=== PATIENT | female | born 1950 | race Caucasian/White ===

== ENCOUNTER 2016-06-17 07:18 | Day surgery (SDC) | payer MEDICARE ==
[2016-06-12 12:07] VITALS: BMI 29.2
[~2016-06-17 07:18] MED LIST: LACTATED RINGERS 1,000 ML IV SCH
[2016-06-17 07:49] VITALS: TEMP 96.9
[2016-06-17] MEDS ORDERED: LIDOCAINE 1% 20 ML VIAL (10MG/ML) FOR IV START INTRADERMA ONE (07:55)
[2016-06-17] MEDS ORDERED: PROPOFOL 10 MG/ML 20 ML VIAL IV ONE (08:23)
--- NOTE | 2016-06-17 08:39 | P.PCN ---
Date of Procedure: 06/17/16 Procedure(s) Performed: BRIEF HISTORY: Patient is a 65-year-old pleasant white female scheduled for an elective colonoscopy as a part of History of Ulcerative Colitis Diagnosed in 2001. She Is in Clinical Remission. Presently Maintained on Oral Mesalamine. PROCEDURE PERFORMED: Colonoscopy with biopsy PREOPERATIVE DIAGNOSIS: Long-standing history of ulcerative colitis. IV sedation per Anesthesia. PROCEDURE: After informed consent was obtained, the patient, was brought into the endoscopy unit. IV sedation was administered by Anesthesia under continuous monitoring. Digital rectal examination was normal. Initially the Olympus CF- 160 flexible video colonoscope was then inserted in the rectum, gradually advanced into the cecum without any difficulty. Careful examination was performed as the scope was gradually being withdrawn. Ileocecal valve and the appendiceal orifice were visualized and appeared normal. Prep was excellent. Mucosa of the cecum, ascending colon, transverse colon, descending colon, sigmoid colon, had mild erythema throughout the entire colon but no evidence of erosions or ulcerations or spontaneous bleeding consistent with mild active colitis and multiple random biopsies were done at every 10 cm into well. The rectum appeared normal. Retroflexion was performed in the rectum and no lesions were seen. The patient tolerated the procedure well. IMPRESSION: Mild erythema throughout the entire colon consistent with mildly active ulcerative colitis. Status post random biopsies. No evidence of colorectal neoplasia. RECOMMENDATIONS: Findings of this examination were discussed with the patient as well as her family. She was advised to follow with the biopsy results. If the biopsy does not show any evidence of dysplasia she can have a repeat colonoscopy in 2 years.
[2016-06-17 09:08] VITALS: BP 139/73; PULSE 67; RESP 18
== END 2016-06-17 09:32 | disposition home or self-care (01) ==
LOC: ORWHC2ENDO 07:18
PROVIDERS: ATTEND Internal Medicine Gastroenterology
DX: K51.00 Ulcerative (chronic) pancolitis without complications (principal); I25.10 Atherosclerotic heart disease of native coronary artery without angina pectoris; I10 Essential (primary) hypertension; E78.5 Hyperlipidemia, unspecified; K21.9 Gastro-esophageal reflux disease without esophagitis; Z95.5 Presence of coronary angioplasty implant and graft; Z79.1 Long term (current) use of non-steroidal anti-inflammatories (NSAID); Z79.82 Long term (current) use of aspirin; Z79.899 Other long term (current) drug therapy; Z90.710 Acquired absence of both cervix and uterus
CPT/HCPCS: 88305; 45380; J2704

== ENCOUNTER 2017-12-02 08:52 | Day surgery (SDC) | payer MEDICARE ==
[2017-12-02 09:30] VITALS: BMI 29.6
[2017-12-02 09:39] VITALS: TEMP 97
[2017-12-02] MEDS ORDERED: LACTATED RINGERS 1,000 ML IV ONE (09:39)
[2017-12-02] MEDS ORDERED: LIDOCAINE 1% 20 ML VIAL (10MG/ML) FOR IV START INTRADERMA ONE (09:40)
[2017-12-02] MEDS ORDERED: LIDOCAINE 1% INJ 10MG/ML (20 ML MDV) ONE (10:53)
[2017-12-02] MEDS ORDERED: MIDAZOLAM 2 MG/2 ML VIAL ONE (10:53)
[2017-12-02] MEDS ORDERED: PROPOFOL 10 MG/ML 20 ML VIAL IV ONE (10:53)
--- NOTE | 2017-12-02 11:07 | P.PCN ---
Date of Procedure: 12/02/17 Procedure(s) Performed: BRIEF HISTORY: Patient is a 67-year-old, pleasant, female, scheduled for an upper endoscopy with possible dilation as a part of evaluation of intermittent dysphagia to solids for the last 3 months duration.. PROCEDURE PERFORMED: Esophagogastroduodenoscopy with biopsy and dilation PREOPERATIVE DIAGNOSIS: Dysphagia to solids of 3 months duration. IV sedation per anesthesia. PROCEDURE: After informed consent was obtained, the patient was brought into the endoscopy unit. IV sedation was administered by Anesthesia under continuous monitoring. Initially the Olympus GIF-140 video endoscope was inserted into the mouth. Esophagus intubated without any difficulty. It was gradually advanced into the stomach and duodenum and carefully examined. The bulb and the second part of the duodenum appeared normal. The scope at this time was withdrawn to the stomach, adequately insufflated with air, and upon careful examination, mucosa of the antrum mild gastritis and biopsies were done from this area. The body, cardia and the fundus appeared normal. The scope was then withdrawn into the esophagus. Small sliding Hiatal hernia noted. The GE junction was located at 39 cm from the incisors. There was distal esophageal Schatzki's ring identified and this was dilated using a T 15-18 mm TTS balloon as sequential fashion for 90 seconds. There were 2 superficial erosions in the distal esophagus consistent with LA grade B reflux esophagitis. Rest of the esophagus appeared normal and the patient tolerated the procedure well. IMPRESSION: 1. Distal esophageal Schatzki's ring status post balloon dilation 15-18 mm the balloon as described above. 2. LA grade B reflux esophagitis 3. Mild antral gastritis and a small hiatal hernia. RECOMMENDATIONS: The findings of this examination were discussed with the patient is a family. She will remain on a liquid liquid diet for lunch and soft diet for dinner. She was advised to follow with the biopsy results. She' ll continue with Zantac 150 milligrams twice daily.. She'll be seen in office in 3-4 weeks.
[2017-12-02] MEDS ORDERED: LACTATED RINGERS 1,000 ML IV SCH (11:18)
[2017-12-02 11:34] VITALS: BP 150/80; PULSE 78; RESP 18
== END 2017-12-02 12:05 | disposition home or self-care (01) ==
LOC: ORWHC2ENDO 08:52
PROVIDERS: ATTEND Internal Medicine Gastroenterology
DX: K22.2 Esophageal obstruction (principal); K44.9 Diaphragmatic hernia without obstruction or gangrene; K31.9 Disease of stomach and duodenum, unspecified; K21.0 Gastro-esophageal reflux disease with esophagitis; K22.10 Ulcer of esophagus without bleeding; I25.10 Atherosclerotic heart disease of native coronary artery without angina pectoris; I10 Essential (primary) hypertension; Z87.891 Personal history of nicotine dependence; Z95.5 Presence of coronary angioplasty implant and graft; Z79.82 Long term (current) use of aspirin; Z79.899 Other long term (current) drug therapy
CPT/HCPCS: 88305; 43239; 43249; J2250; J2001; J2704; C1726

== ENCOUNTER 2018-06-15 09:51 | Day surgery (SDC) | payer MEDICARE ==
[2018-06-13 09:55] VITALS: BMI 28.8
[~2018-06-15 09:51] MED LIST changes: +LIDOCAINE 1% 20 ML VIAL (10MG/ML) FOR IV START INTRADERMA PRN; +ONDANSETRON 4 MG/2 ML VIAL IVP ONE; +TETRACAINE 0.5% OPHTH (PF) DROPS 4 ML BTL OP ONE
[2018-06-15] MEDS: PHENYLEPHRINE 2.5% OPHTH DRP 2ML OP NR ×3 (10:26→10:42)
[2018-06-15] MEDS: CYCLOPENTOLATE 1% OPHTH SOLN 2 ML BTL OP ONE ×3 (10:30→10:46)
[2018-06-15 10:36] VITALS: TEMP 97.7
[2018-06-15] MEDS ORDERED: MIDAZOLAM 2 MG/2 ML VIAL ONE (11:12)
[2018-06-15] MEDS ORDERED: fentaNYL (PF) 50 MCG/ML 2 ML AMP ONE (11:12)
[2018-06-15] MEDS ORDERED: HYALURONATE SODIUM INTRAOCULAR 1 EACH SYRINGE (12MG/ML) INTRAOCULA ONE ×2 (11:20→11:28)
[2018-06-15] MEDS ORDERED: BALANCED SALT IRRIG SOLN COMB2 15 ML IRRIG.SOLN IRRIGATION ONE ×2 (11:21→11:28)
[2018-06-15] MEDS ORDERED: LIDOCAINE 1% (PF) 10MG/ML VIAL MISCELLANE ONE ×2 (11:21→11:28)
[2018-06-15] MEDS: TIMOLOL 0.5% OPHTH DROPS 5 ML BTL OP ONE ×2 (11:21→11:28)
[2018-06-15] MEDS ORDERED: ATROPINE OPHTH SOLN 1% 5ML BTL LEFT EYE ONE ×2 (11:22→11:28)
[2018-06-15] MEDS: MOXIFLOXACIN HCL 0.5% DROPS 3 ML BTL OP ONE ×2 (11:22→11:28)
[2018-06-15] MEDS ORDERED: EPINEPHrine (PF) 0.3 ML in BALANCED SALT IRRIG SOLN COMB2 500 ML IRRIGATION ONE ×4 (11:23)
--- NOTE | 2018-06-15 11:59 | P.OP ---
Date of Procedure: 06/15/18 Preoperative Diagnosis: NS & CS Postoperative Diagnosis: same Procedure(s) Performed: PIOL, OS Implants: AO1UV 24.50 Anesthesia: MAC Surgeon: Layo Ashby Estimated Blood Loss (ml): 0 Pathology: none sent Condition: stable Disposition: same day Indications for Procedure: blurry vision Operative Findings: No complications
[2018-06-15 12:22] VITALS: BP 175/82; PULSE 71; RESP 16
--- NOTE | 2018-06-16 09:26 | OP ---
OPERATIVE REPORT DATE OF SURGERY: June 15, 2018. PROCEDURE PERFORMED: Phacoemulsification of cataract and intraocular lens implant of the left eye. PREOPERATIVE DIAGNOSIS:: Nuclear sclerosis and cortical sclerosis. POSTOPERATIVE DIAGNOSIS:: Nuclear sclerosis and cortical sclerosis. OPERATION:: Phacoemulsification of cataract and Crystalens implant of the left eye. NARRATIVE:: After obtaining the appropriate consent, the patient was brought to the operating room. There the patient was placed under cardiac monitoring, prepped and draped in the usual sterile manner. The patient was approached from the left temporal side. The 5.5 mm Kirti ring inked in gentian clifton was placed centrally on the cornea. At the 11 o'clock position, a 1.1 mm keratome was used to create a paracentesis port. Through this opening, 1% Xylocaine MPF 50/50 mix with balanced salt solution was injected into the anterior chamber. This was followed by stabilization of the anterior chamber with Amvisc viscoelastic. At the 9 o'clock position, a 2.75 mm sonia keratome was used to create a self-scaling corneal flap incision in a Langerman fashion. Through this opening, a cystotome was introduced to begin a continuous tear capsulorrhexis which was completed using the Utrata forceps. Care was taken to ensure that the capsulorrhexis was at least the size of the bryn on the anterior cornea. Hydrodissection and hydrodelineation of the lens was accomplished with balanced salt solution. Phacoemulsification of the lens utilizing phaco chop was accomplished in 10.41 seconds at 10% power. Addition Xylocaine MPF was instilled into the anterior chamber. This was followed by removal of the remaining cortex under irrigation and aspiration along with careful polishing of the posterior capsule in a capsule vacuum mode. Additional Amvisc viscoelastic was then used to stabilize the capsular bag, and the Bausch and Lomb Crystalens Model AO1UV 24.5 diopter intraocular lens was injected into the capsular bag without difficult. The lens was rotated 270 degrees so that the haptics resided at the 6 and 12 o'clock positions, and all remaining viscoelastic was then removed from within the capsular bag and around the anterior chamber. The eye was brought to normal intraocular pressure through the paracentesis port along with slight hydration of the incision sites. Watertight integrity was confirmed using a fluorescein strip. The patient then received 2 drops of 0.5% timolol followed by 2 drops of Vigamox and 2 drops of 1% atropine. The patient was then lightly patched and shielded in the usual manner. There was no complications from the procedure. The patient tolerated the procedure well and was returned to outpatient recovery in good condition. SAROJ / LUIS: [id number] / MTDD
== END 2018-06-15 12:43 | disposition home or self-care (01) ==
LOC: OR 09:51
PROVIDERS: ATTEND Ophthalmology
DX: H25.812 Combined forms of age-related cataract, left eye (principal); I10 Essential (primary) hypertension; K21.9 Gastro-esophageal reflux disease without esophagitis; F40.240 Claustrophobia; H52.03 Hypermetropia, bilateral; E78.5 Hyperlipidemia, unspecified; H52.223 Regular astigmatism, bilateral; H52.4 Presbyopia; H00.026 Hordeolum internum left eye, unspecified eyelid; H00.023 Hordeolum internum right eye, unspecified eyelid; Z95.5 Presence of coronary angioplasty implant and graft; Z79.899 Other long term (current) drug therapy; Z87.891 Personal history of nicotine dependence; Z79.82 Long term (current) use of aspirin
CPT/HCPCS: 66984; V2632; V2788; J2250; J2405; J0171; J3010; J2001

== ENCOUNTER 2018-07-20 10:36 | Day surgery (SDC) | payer MEDICARE ==
[2018-07-14 16:11] VITALS: BMI 28.9
[~2018-07-20 10:36] MED LIST changes: +MOXIFLOXACIN HCL 0.5% DROPS 3 ML BTL OP ONE; -ONDANSETRON 4 MG/2 ML VIAL IVP ONE; +TIMOLOL 0.5% OPHTH DROPS 5 ML BTL OP ONE
[2018-07-20 11:26] VITALS: RESP 16; TEMP 98.2
[2018-07-20] MEDS: PHENYLEPHRINE 2.5% OPHTH DRP 2ML OP NR ×3 (11:35→11:47)
[2018-07-20] MEDS: CYCLOPENTOLATE 1% OPHTH SOLN 2 ML BTL OP ONE ×3 (11:38→11:50)
[2018-07-20] MEDS ORDERED: MIDAZOLAM 2 MG/2 ML VIAL ONE (12:44)
[2018-07-20] MEDS ORDERED: HYDROCORTISONE SUCCINATE 100 MG/2 ML VIAL ONE (12:44)
[2018-07-20] MEDS ORDERED: fentaNYL (PF) 50 MCG/ML 2 ML AMP ONE (12:44)
[2018-07-20] MEDS ORDERED: EPINEPHrine (PF) 0.3 ML in BALANCED SALT IRRIG SOLN COMB2 500 ML IRRIGATION ONE (12:46)
[2018-07-20] MEDS ORDERED: HYALURONATE SODIUM INTRAOCULAR 1 EACH SYRINGE (12MG/ML) INTRAOCULA ONE (12:47)
[2018-07-20] MEDS ORDERED: BALANCED SALT IRRIG SOLN COMB2 15 ML IRRIG.SOLN INTRAOCULA ONE (12:48)
[2018-07-20] MEDS ORDERED: LIDOCAINE 1% (PF) 10MG/ML VIAL SQ ONE (12:48)
[2018-07-20] MEDS ORDERED: TRYPAN BLUE 0.06% SYRINGE 0.5 ML SYRINGE INTRAOCULA ONE (12:49)
[2018-07-20] MEDS ORDERED: ATROPINE OPHTH SOLN 1% 5ML BTL RIGHT EYE ONE (13:03)
[2018-07-20] MEDS ORDERED: FLUORESCEIN STRIPS 1 MG STRIP RIGHT EYE ONE (13:48)
--- NOTE | 2018-07-20 13:58 | P.OP ---
Date of Procedure: 07/20/18 Preoperative Diagnosis: NS Postoperative Diagnosis: same Procedure(s) Performed: PIOL, OD Implants: [id number] 22.50 Anesthesia: MAC Surgeon: Layo Ashby Pathology: none sent Condition: stable Disposition: same day Indications for Procedure: blurry vision Operative Findings: pc tear, Miochol and secondary implant chosen. sutured 9 o/c wound. no vitreous at end of case, 100 mg solucortef IVP administered
[2018-07-20 14:40] VITALS: BP 140/65; PULSE 82
--- NOTE | 2018-07-21 06:30 | OP ---
OPERATIVE REPORT DATE OF SURGERY: July 20, 2018 PROCEDURES: Phacoemulsification of cataract and intraocular lens implant of the right eye. PREOPERATIVE DIAGNOSIS: Nuclear sclerosis and regular astigmatism. POSTOPERATIVE DIAGNOSIS: Nuclear sclerosis and regular astigmatism. SURGEON: Dr. Layo Ashby. ANESTHESIA: Topical. ESTIMATED BLOOD LOSS: None. SPECIMEN TAKEN: None. NARRATIVE: After obtaining the appropriate consent, the patient was brought to the operating room. There she was asked to sit upright and the axes 0 and 180 degrees were identified and marked with a gentian clifton marker on the patient's corneal limbus. She was then placed in the proper supine position under cardiac monitoring, then prepped and draped in the usual sterile manner. Using previously acquired corneal topography information, the axis of 74 degrees was identified and marked using the Rojas corneal axis marker. Once this was accomplished, a 5.5 mm Kirti ring was used to bryn the center of the patient's visual axis. At the 11 o'clock position an MVR blade was used to create a paracentesis port. Through this opening 1% Xylocaine MPF was instilled into the anterior chamber. This was followed by stabilization of the anterior chamber with Amvisc. At the 9 o'clock position, a 2.75 mm sonia keratome was used to create a self- sealing corneal flap incision in a Langerman's fashion. Through this opening, a cystotome was introduced to begin a continuous tear capsulorrhexis which was completed using the Utrata forceps. Hydrodissection and hydrodelineation of the lens was accomplished with balanced salt solution. Phacoemulsification of the lens was accomplished without difficulty. However, none of the values were recorded, so I have no amount of energy or time or fluids used in this patient's eye. Once the nucleus of lens was removed, additional Xylocaine MPF was instilled into the anterior chamber. This was followed by removal of the remaining cortex under irrigation and aspiration along with careful polishing of the posterior capsule in capsule vacuum mode. Because the planned lens to implant is a crystal lens using Eaton and Chacho corneal capsule polishers were used under viscoelastic to clean the entire anterior capsular leaflet as well as the equator as best possible. It was noted that during the final cleaning stage at the 9 o'clock position a rent began to form. It did not initially appear that there was any vitreous presenting and the area was tamponaded as quickly as possible with Amvisc. A little closer inspection did reveal some vitreous at the wound and using an irrigating cannula, the vitreous was swept back into the anterior chamber with minimal difficulty. There was a small amount noted that remained at the wound. This was cleaned up using Weck-Salena vitrectomy and Vannas scissors. Once this was accomplished and all vitreous was removed from the wound, additional viscoelastic was used to tamponade the opening through the posterior capsule. The back up lens chosen was a Bausch and Lomb LI61AO 22.5 diopter, which was inserted into the anterior chamber. The lens was noted to have been delivered in an inverted fashion. Fortunately, since the trailing haptic was left outside of the eye, easy manipulation without touching cornea or grabbing additional vitreous was accomplished without much difficulty and the lens was oriented in the proper anterior-posterior orientation. The lead haptic was placed within the ciliary sulcus without difficulty and using a Brandt forceps, the trailing haptic was placed into the ciliary sulcus as well. Though no vitreous was appreciated in or around the lens, Miochol was used to bring about pupillary miosis and ensure stability of the implant in its proper position. Careful irrigation and aspiration of the anterior chamber under low suction was performed to remove the viscoelastic from the anterior chamber. Once again, the temporal incision was confirmed to be without any vitreous and a 10-0 nylon suture was used to secure the temporal incision. The eye was brought to normal intraocular pressure through the paracentesis port. Fluorescein was used to confirm watertight integrity as well as the appearance of any stray vitreous from either the paracentesis or the temporal incision. As none was seen, moxifloxacin was placed on the patient's cornea as well as 2 drops of 0.5% timolol. The eye was then patched and shielded in the usual manner. Additionally, anesthesia was asked to administer 100 mg of Solu- Cortef IV push at the close of the case. There were no additional difficulties encountered during the procedure. She otherwise tolerated the procedure well and was returned to outpatient recovery in good condition. MIGUELL / CONSUELON: [id number] /
== END 2018-07-20 14:43 | disposition home or self-care (01) ==
LOC: OR 10:36
PROVIDERS: ATTEND Ophthalmology
DX: H25.11 Age-related nuclear cataract, right eye (principal); H52.223 Regular astigmatism, bilateral; H52.03 Hypermetropia, bilateral; H52.4 Presbyopia; H00.026 Hordeolum internum left eye, unspecified eyelid; H00.023 Hordeolum internum right eye, unspecified eyelid; Z96.1 Presence of intraocular lens; E78.5 Hyperlipidemia, unspecified; K21.9 Gastro-esophageal reflux disease without esophagitis; K51.90 Ulcerative colitis, unspecified, without complications; I25.119 Atherosclerotic heart disease of native coronary artery with unspecified angina pectoris; I11.9 Hypertensive heart disease without heart failure; Z87.891 Personal history of nicotine dependence; Z95.5 Presence of coronary angioplasty implant and graft; Z79.82 Long term (current) use of aspirin; Z79.899 Other long term (current) drug therapy
CPT/HCPCS: 66984; V2632; V2788; J2250; J1720; J0171; J3010; J2001

== ENCOUNTER → 2018-08-19 | Day surgery (SDC) | payer MEDICARE ==
[2018-08-17 17:07] VITALS: BMI 29.9
[~2018-08-19] MED LIST changes: +LACTATED RINGERS 1,000 ML IV ONE; +LIDOCAINE 1% 20 ML VIAL (10MG/ML) FOR IV START INTRADERMA ONE; -LIDOCAINE 1% 20 ML VIAL (10MG/ML) FOR IV START INTRADERMA PRN; -MOXIFLOXACIN HCL 0.5% DROPS 3 ML BTL OP ONE; +PROPOFOL 10 MG/ML 20 ML VIAL IV ONE; -TETRACAINE 0.5% OPHTH (PF) DROPS 4 ML BTL OP ONE; -TIMOLOL 0.5% OPHTH DROPS 5 ML BTL OP ONE
[2018-08-19 08:31] VITALS: TEMP 97.2
--- NOTE | 2018-08-19 09:38 | P.PCN ---
Date of Procedure: 08/19/18 Procedure(s) Performed: BRIEF HISTORY: Patient is a 59-year-old pleasant white female, scheduled for an elective colonoscopy as a part of surveillance of long-standing history of ulcerative colitis diagnosed in 2001. She remains in clinical remission. PROCEDURE PERFORMED: Colonoscopy with random biopsies. PREOPERATIVE DIAGNOSIS: Long-standing history of ulcerative colitis diagnosed in 2001. IV sedation per Anesthesia. PROCEDURE: After informed consent was obtained, the patient, was brought into the endoscopy unit. IV sedation was administered by Anesthesia under continuous monitoring. Digital rectal examination was normal. Initially the Olympus CF-160 flexible video colonoscope was then inserted in the rectum, gradually advanced into the cecum without any difficulty. Careful examination was performed as the scope was gradually being withdrawn. Ileocecal valve and the appendiceal orifice were visualized and appeared normal. Prep was excellent. Mucosa of the cecum, ascending colon, transverse colon, descending colon, sigmoid colon, and rectum appeared normal. There was some patchy areas of erythema noted in the transverse and descending colon and multiple biopsies were done at every 10 cm intervals from rectum to cecum. Retroflexion was performed in the rectum and no lesions were seen. The patient tolerated the procedure well. IMPRESSION: Mild patchy areas of erythema noted in the transverse colon and descending colon consistent with mild active colitis. Rest of the colon appeared normal No evidence of colorectal neoplasia RECOMMENDATIONS: Findings of this examination were discussed with the patient as well as a family. She was advised to follow with the biopsy results. She will continue with oral mesalamine and she will have a repeat colonoscopy in 2 years from now..
[2018-08-19 09:41] VITALS: RESP 17
[2018-08-19 09:50] VITALS: BP 136/81; PULSE 68
== END | disposition home or self-care (01) ==
LOC: ORWHC2ENDO 08:13
PROVIDERS: ATTEND Internal Medicine Gastroenterology
DX: Z12.11 Encounter for screening for malignant neoplasm of colon (principal); K51.90 Ulcerative colitis, unspecified, without complications; K62.89 Other specified diseases of anus and rectum; K21.9 Gastro-esophageal reflux disease without esophagitis; I10 Essential (primary) hypertension; E78.5 Hyperlipidemia, unspecified; I25.10 Atherosclerotic heart disease of native coronary artery without angina pectoris; Z95.5 Presence of coronary angioplasty implant and graft; Z79.82 Long term (current) use of aspirin; Z79.899 Other long term (current) drug therapy
CPT/HCPCS: 88305; 45380; J2704; 45378

== ENCOUNTER → 2019-08-10 | Outpatient (CLI) | payer BC, MEDICARE ==
--- NOTE | 2019-08-10 14:56 | ECHOS ---
STRESS ECHOCARDIOGRAM LUMASON: INDICATIONS: Chest pain. MEDICATIONS: Metaprolol, Atorvastatin, baby aspirin, Balsalazide, omeprazole, hydrochlorathiazide, multivitamin. BASELINE HEART RATE: 93 BASELINE BLOOD PRESSURE: 169/95 MAXIMUM HEART RATE: 140 MAXIMUM BLOOD PRESSURE: 183/77 85% MPHR: 128 100% MPHR: 151 METS: 7.9 MAXIMUM STAGE REACHED: 2 TOTAL EXERCISE TIME: 6:38 INDICATION: Chest pain. Baseline EKG shows sinus rhythm with poor R-wave progression. Patient exercised on Humberto protocol for a total of 6.5 minutes achieving 8 METS. 99% of predicted maximal heart rate without chest pain or diagnostic ST-segment depression. Baseline echo shows normal left ventricular size and systolic function with an ejection fraction of 55%. The basal inferior wall appears hypokinetic at rest suggestive of prior myocardial infarction. Postexercise, there is normal hyperdynamic response of anterior wall, lateral wall, septum, and mid to distal inferior wall. Basal inferior wall remains unchanged. CONCLUSION: 1. Above-average exercise tolerance. 2. Negative stress test by EKG criteria. 3. Abnormal stress echo showing evidence of small prior basal inferior wall myocardial infarction without any evidence of ischemia. MMODL / IJN: [id number] /
== END | disposition home or self-care (01) ==
LOC: RADNMMAIN 08:51
PROVIDERS: ATTEND Family Medicine
DX: I21.A9 Other myocardial infarction type (principal)
CPT/HCPCS: 93351

== ENCOUNTER 2021-04-16 10:25 | Day surgery (SDC) | payer MEDICARE ==
[2021-04-14 12:10] VITALS: BMI 28.8
[~2021-04-16 10:25] MED LIST changes: -LACTATED RINGERS 1,000 ML IV ONE; +LIDOCAINE 1% (10MG/ML) FOR IV START INTRADERMA PRN; -LIDOCAINE 1% 20 ML VIAL (10MG/ML) FOR IV START INTRADERMA ONE; -PROPOFOL 10 MG/ML 20 ML VIAL IV ONE
[2021-04-16 10:49] VITALS: TEMP 96.5
[2021-04-16] MEDS ORDERED: LACTATED RINGERS 1,000 ML IV ONE (11:01)
[2021-04-16] MEDS ORDERED: PROPOFOL 10 MG/ML 20 ML VIAL IV ONE (11:08)
[2021-04-16] MEDS ORDERED: fentaNYL (PF) 50 MCG/ML 2 ML AMP ONE (11:08)
[2021-04-16] MEDS ORDERED: MIDAZOLAM 2 MG/2 ML VIAL ONE (11:08)
--- NOTE | 2021-04-16 11:30 | P.PCN ---
Date of Procedure: 04/16/21 Procedure(s) Performed: BRIEF HISTORY: Patient is a 70-year-old pleasant female scheduled for an elective colonoscopy as a part of a history of ulcerative colitis diagnosed in 2001. She continues remains in clinical remission. Last colonoscopy was 3 years ago. PROCEDURE PERFORMED: Colonoscopy with random biopsies.. PREOPERATIVE DIAGNOSIS: Long-standing history of ulcerative colitis. IV sedation per Anesthesia. PROCEDURE: After informed consent was obtained, the patient, was brought into the endoscopy unit. IV sedation was administered by Anesthesia under continuous monitoring. Digital rectal examination was normal. Initially the Olympus CF-160 flexible video colonoscope was then inserted in the rectum, gradually advanced into the cecum without any difficulty. Careful examination was performed as the scope was gradually being withdrawn. Ileocecal valve and the appendiceal orifice were visualized and appeared normal. Prep was excellent. Mucosa of the cecum, ascending colon, transverse colon, descending colon, sigmoid colon, and rectum appeared normal. Retroflexion was performed in the rectum and no lesions were seen. Biopsies were done from the cecum to rectum at every 10 cm intervals to rule out dysplasia The patient tolerated the procedure well. IMPRESSION: Normal-appearing colon from rectum to cecum with no evidence of colitis or colorectal neoplasia. . RECOMMENDATIONS: Findings of this examination were discussed with the patient as well as a family. She will continue with balsalazide 3 tablets 3 times daily. She was advised to follow with the biopsy results. If the biopsy reveals no , she can have a repeat colonoscopy in 2 years..
[2021-04-16 11:37] VITALS: PULSE 70
[2021-04-16 11:54] VITALS: BP 136/78; RESP 17
== END 2021-04-16 12:18 | disposition home or self-care (01) ==
LOC: ORWHC2ENDO 10:25
PROVIDERS: ATTEND Internal Medicine Gastroenterology
DX: K51.90 Ulcerative colitis, unspecified, without complications (principal); I25.10 Atherosclerotic heart disease of native coronary artery without angina pectoris; I10 Essential (primary) hypertension; E78.5 Hyperlipidemia, unspecified; Z95.5 Presence of coronary angioplasty implant and graft; Z90.49 Acquired absence of other specified parts of digestive tract; Z90.710 Acquired absence of both cervix and uterus; Z98.49 Cataract extraction status, unspecified eye; Z98.890 Other specified postprocedural states; Z79.82 Long term (current) use of aspirin; Z79.899 Other long term (current) drug therapy
CPT/HCPCS: 88305; 45380; J2250; J3010; J2704

== ENCOUNTER 2021-06-18 07:05 | Observation (INO) | payer MEDICARE ==
[2021-06-18] MEDS ORDERED: NITROGLYCERIN SL TABS 0.4 MG TAB SUBLINGUAL STA (07:26)
[2021-06-18] MEDS ORDERED: ACETAMINOPHEN TAB 325 MG TAB PO STA (07:27)
--- NOTE | 2021-06-18 07:34 | ED ---
Chest Pain HPI - General Chief Complaint: Chest Pain Stated Complaint: Chest Pain Time Seen by Provider: 06/18/21 07:11 Source: patient, family Mode of arrival: wheelchair Limitations: no limitations - History of Present Illness Initial Comments: 70-year-old female past history of hypertension and ulcerative colitis, coronary artery disease with one stent who presents to the emergency room with reported chest pain. Started around 11 AM yesterday morning. States that it is a 4 out of 10 discomfort. Describes it as a pressure sensation with some numbness and tingling in her right hand. Denies associated nausea, vomiting or diaphoresis. No fevers, chills or cough. Pain waxes and wanes. She did take her medications this morning around 5 AM including a baby aspirin. She follows with Dr. Goerge out of [facility]. She had an appointment scheduled for Wednesday. No recent stress testing. No ripping or tearing sensation to her back. No other alleviating, precipitating or modifying factors - Related Data Home Medications Medication Instructions Recorded Confirmed Aspirin [Adult Low Dose Aspirin EC] 81 mg PO DAILY 06/12/16 06/18/21 Atorvastatin [Lipitor] 20 mg PO DAILY 06/12/16 06/18/21 Metoprolol Tartrate [Lopressor] 100 mg PO BID 06/12/16 06/18/21 Calcium Carbonate [Calcium] 1,000 mg PO DAILY 08/17/18 06/18/21 Multivitamins, Thera [Multivitamin 1 tab PO DAILY 08/17/18 06/18/21 (formulary)] Losartan/Hydrochlorothiazide 1 tab PO DAILY 04/14/21 06/18/21 [Losartan-Hctz 50-12.5 mg Tab] Omeprazole [PriLOSEC] 20 mg PO AC-BRKFST 04/14/21 06/18/21 Ranolazine [Ranolazine ER] 500 mg PO Q12HR 04/14/21 06/18/21 Ascorbic Acid [Vitamin C] 500 mg PO DAILY 06/18/21 06/18/21 Balsalazide Disodium 2,250 mg PO BID 06/18/21 06/18/21 Ciclopirox Olamine [Ciclopirox 1 applic TOPICAL BID 06/18/21 06/18/21 0.77% Topical Susp.] Allergies Allergy/AdvReac Type Severity Reaction Status Date / Time No Known Allergies Allergy Verified 06/18/21 08:43 Review of Systems ROS Statement: Those systems with pertinent positive or pertinent negative responses have been documented in the HPI. ROS Other: All systems not noted in ROS Statement are negative. EKG Findings - EKG Comments: EKG Findings:: EKG demonstrates sinus rhythm with a rate of 68. NH interval 178. QRS 97. QTC of 420. No acute ST segment elevations or depressions concerning for ischemic changes. Past Medical History Past Medical History: GERD/Reflux, Hyperlipidemia, Hypertension Additional Past Medical History / Comment(s): ulcerative colitis History of Any Multi-Drug Resistant Organisms: None Reported Past Surgical History: Cholecystectomy, Heart Catheterization With Stent, Hysterectomy, Tonsillectomy Additional Past Surgical History / Comment(s): LEEROY CATARACTS, fatty cyst removed from back of throat,colonoscopies Past Anesthesia/Blood Transfusion Reactions: No Reported Reaction, Family History of Problems w/ Anesthesia Additional Past Anesthesia/Blood Transfusion Reaction / Comment(s): "daughter takes long time to come out of it". pt has claustrophobia Date of Last Stent Placement:: 2008 Past Psychological History: No Psychological Hx Reported Smoking Status: Former smoker - Past Family History Father Family Medical History: Liver Disease Mother Family Medical History: Congestive Heart Failure (CHF) General Exam Limitations: no limitations General appearance: alert, in no apparent distress Head exam: Present: atraumatic, normocephalic, normal inspection Eye exam: Present: normal appearance, PERRL, EOMI. Absent: scleral icterus, conjunctival injection, periorbital swelling ENT exam: Present: normal exam, mucous membranes moist Neck exam: Present: normal inspection. Absent: tenderness, meningismus, lymphadenopathy Respiratory exam: Present: normal lung sounds bilaterally. Absent: respiratory distress, wheezes, rales, rhonchi, stridor Cardiovascular Exam: Present: regular rate, normal rhythm, normal heart sounds. Absent: systolic murmur, diastolic murmur, rubs, gallop, clicks GI/Abdominal exam: Present: soft, normal bowel sounds. Absent: distended, tenderness, guarding, rebound, rigid Extremities exam: Present: normal inspection, full ROM, normal capillary refill. Absent: tenderness, pedal edema, joint swelling, calf tenderness Back exam: Present: normal inspection Neurological exam: Present: alert, oriented X3, CN II-XII intact Psychiatric exam: Present: normal affect, normal mood Skin exam: Present: warm, dry, intact, normal color. Absent: rash Course Vital Signs 06/18/21 06/18/21 06/18/21 07:06 07:17 11:40 Temperature 97.2 F L Pulse Rate 72 66 Pulse Rate [ 75 Freedom Of Information Officer ] Respiratory 18 12 Rate Blood Pressure 192/92 167/86 O2 Sat by Pulse 99 99 Oximetry 06/18/21 06/18/21 06/18/21 11:44 11:50 12:30 Temperature Pulse Rate 64 73 69 Pulse Rate [ Freedom Of Information Officer ] Respiratory Rate Blood Pressure 166/79 134/67 147/89 O2 Sat by Pulse Oximetry 06/18/21 14:27 Temperature Pulse Rate 71 Pulse Rate [ Freedom Of Information Officer ] Respiratory 14 Rate Blood Pressure 159/74 O2 Sat by Pulse 100 Oximetry Chest Pain MDM - MDM Upon arrival patient is placed into room 10. A thorough history and physical exam was performed. IV access is established and laboratory studies were conducted. Patient is given nitro for pain control which does not alleviate her symptoms. Laboratory studies are reviewed and troponin is negative. Chest x- ray demonstrates no acute process. Recommended admission due to previous history of cardiac disease for which she did agree to. Patient offered something further for pain control however she refuses. Patient will be a dmitted to [facility]. Disposition Clinical Impression: Chest pain Disposition: ADMITTED IP TO THIS HOSP Condition: Stable Is patient prescribed a controlled substance at d/c from ED?: No Decision to Admit Reason: Admit from EC Decision Date: 06/18/21 Decision Time: 09:32
[2021-06-18 08:27] LABS: Basophils % (A) 1 %; Eosinophils # (A) 0.2 k/uL (0-0.7); Eosinophils % (A) 4 %; HGB 14.4 gm/dL (11.4-16.0); Lymphocytes # (A) 1.5 k/uL (1.0-4.8); Lymphocytes % (A) 26 %; MCH 32.2 pg (25.0-35.0); MCHC 34.2 g/dL (31.0-37.0); MCV 94.2 fL (80.0-100.0); Mean Platelet Volume 7.4; Monocytes # (A) 0.3 k/uL (0-1.0); Monocytes % (A) 6 %; Neutrophils # (A) 3.5 k/uL (1.3-7.7); Neutrophils % (A) 61 %; Platelet Count 309 k/uL (150-450); RBC 4.46 m/uL (3.80-5.40); RDW 12.4 % (11.5-15.5); WBC 5.7 k/uL (3.8-10.6)
--- NOTE | 2021-06-18 08:32 | XR ---
EXAMINATION TYPE: XR chest 2V DATE OF EXAM: 06/18/2021 COMPARISON: NONE HISTORY: Chest pain. TECHNIQUE: Frontal and lateral views of the chest are obtained. FINDINGS: There is no suspicious focal air space opacity, pleural effusion, or pneumothorax seen. T he cardiac silhouette size is upper limits of normal. The osseous structures are intact. Cholecyste ctomy clips are seen. IMPRESSION: No acute process.
[2021-06-18 08:40] LABS: INR 0.9 (<1.2); Partial Thromboplastin Time 24.8 sec (22.0-30.0)
[2021-06-18 08:53] LABS: Albumin 4.4 g/dL (3.5-5.0); Calcium 9.2 mg/dL (8.4-10.2); Magnesium 2.1 mg/dL (1.6-2.3); Potassium 4.3 mmol/L (3.5-5.1); Total Bilirubin 1.1 mg/dL (0.2-1.3); Total Protein 7.8 g/dL (6.3-8.2)
[2021-06-18] MEDS ORDERED: NALOXONE 0.4 MG/ML 1 ML VIAL IV PRN (09:32)
[2021-06-18] MEDS ORDERED: LABETALOL 5 MG/ML VIAL MDV IVP STA (10:58)
[2021-06-18] MEDS ORDERED: LOSARTAN 50 MG TAB PO SCH (12:00)
--- NOTE | 2021-06-18 12:59 | CA ---
Transthoracic Echo Report Name: Nette Anna Age: 70 Gender: F : 1950 Exam Date: 06/18/2021 10:38 Exam Location: [place] [facility] Ht (in): 64 Wt (lb): 167 Ordering Physician: Veronica Juárez DO Attending/Referring Phys: [id number], Marquita Farm Mechanic Apprentice Keri Olsen, RDCS Procedure CPT: Indications: Chest Pain Cardiac Hx: HTN, CAD, STENT Technical Quality: Contrast 1: N/A Total Dose (mL): Contrast 2: Total Dose (mL): MEASUREMENTS (Male / Female) Normal Values 2D ECHO LV Diastolic Diameter PLAX 4.5 cm 4.2 - 5.9 / 3.9 - 5.3 cm LV Systolic Diameter PLAX 2.9 cm IVS Diastolic Thickness 1.2 cm 0.6 - 1.0 / 0.6 - 0.9 cm LVPW Diastolic Thickness 1.3 cm 0.6 - 1.0 / 0.6 - 0.9 cm LV Relative Wall Thickness 0.6 RV Internal Dim ED PLAX 2.5 cm LA Systolic Diameter LX 3.6 cm 3.0 - 4.0 / 2.7 - 3.8 cm LA Volume 56.7 cm 18 - 58 / 22 - 52 cm M-MODE Aortic Root Diameter MM 3.0 cm LA Systolic Diameter MM 3.7 cm LA Ao Ratio MM 1.3 MV E Point Septal Separation 0.5 cm AV Cusp Separation MM 1.9 cm DOPPLER MV Area PHT 3.3 cm Mitral E Point Velocity 71.3 cm/s Mitral A Point Velocity 68.0 cm/s Mitral E to A Ratio 1.0 MV Deceleration Time 227.6 ms MV E' Velocity 5.2 cm/s Mitral E to MV E' Ratio 13.7 TR Peak Velocity 241.4 cm/s TR Peak Gradient 23.3 mmHg Right Ventricular Systolic Press 28.3 mmHg FINDINGS Left Ventricle Normal left ventricular systolic function with no obvious regional wall motion abnormalities. Right Ventricle The right ventricle is normal in size and function. Right Atrium The right atrium is normal in size. Left Atrium Mildly increased left atrial volume. Mitral Valve Structurally normal mitral valve without significant stenosis or prolapse. There is mild mitral regurgitation. Aortic Valve Structurally normal aortic valve without significant sclerosis or stenosis. There is no aortic regurgitation. Tricuspid Valve Structurally normal tricuspid valve without significant stenosis. Pulmonary artery systolic pressure is normal. Pulmonic Valve Structurally normal pulmonic valve without significant stenosis. There is no pulmonic regurgitation. Pericardium Echo free space anterior to the right ventricle likely represents a fat pad. Aorta Normal aortic root dimension. CONCLUSIONS Normal LV size and systolic function mild mitral and tricuspid insufficiency. No significant pulmonary hypertension. No pericardial effusion Previewed by: Dr. Katarzyna Koehler MD (Electronically Signed) Final Date: 18 June 2021 12:58
[2021-06-18] MEDS ORDERED: HEPARIN SODIUM 1,000 UN/ML (10ML VL) IV PRN (13:38)
[2021-06-18] MEDS ORDERED: HEPARIN SODIUM 1,000 UN/ML (10ML VL) IV ONE (13:38)
--- NOTE | 2021-06-18 13:38 | P.CRDCN ---
History of Present Illness History of present illness: HISTORY OF PRESENTING ILLNESS This is a pleasant 70-year-old female past medical history significant for hypertension, dyslipidemia, GERD, Ulcerative colitis, former tobacco use quit in the 1980s, coronary artery disease s/p prior PCI 13 years ago (she states due to an abnormal stress test). She follows with Dr. Castellano. We have been asked to see in consultation for Chest pain. Patient presents emergency department with complaints of chest discomfort and hypertension. Patient began began to have chest pressure yesterday, it began in the center of her chest, radiated to her left jaw. It was non-exertional. She had associated right arm tingling. She checked her blood pressure and continued to be in the 180s systolic without improvement. Her chest pressure continued and presented to the emergency department for further evaluation. She denies any associated shortness of breath, diaphoresis, nausea, lightheadedness, dizziness, syncope or near syncope. She was given sublingual nitro with improvement. No specific aggravating factors. She states she has not had a stress test in the past year. She denies any history of lung disease, stroke or diabetes. Family history includes mother had congestive heart failure and brother had an UT. DIAGNOSTICS EKG reveals sinus rhythm, heart rate 68, T wave inversion in lead aVL, poor R- wave progression, normal axis, non-specific ST changes in anterior leads possible prior UT, no acute ischemic changes noted. Prior EKG in 2019 with jyoti lar findings. 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 CARDIOVASCULAR: Denies chest pain, shortness of breath, orthopnea, PND or palpitations. RESPIRATORY: Denies cough. GASTROINTESTINAL: Denies abdominal pain, diarrhea, constipation, nausea or vomiting. MUSCULOSKELETAL: Denies myalgias. NEUROLOGIC: Denies numbness, tingling, headache or weakness. ENDOCRINE: Denies fatigue, weight change, polydipsia or polyurina. GENITOURINARY: Denies burning, hematuria or urgency with micturation. HEMATOLOGIC: Denies history of anemia or bleeding. PHYSICAL EXAMINATION Vitals reviewed CONSTITUTIONAL: No apparent distress. HEENT: Head is normocephalic. Pupils are equal, round. Sclerae anicteric. Mucous membranes of the mouth are moist. No JVD. No carotid bruit. CHEST EXAMINATION: Lungs are clear to auscultation. No chest wall tenderness is noted on palpation or with deep breathing. HEART EXAMINATION: Regular rate and rhythm. S1, S2 heard. No murmurs, gallops or rub. ABDOMEN: Soft, nontender. Positive bowel sounds. EXTREMITIES: 2+ peripheral pulses, no lower extremity edema and no calf tenderness. SKIN: warm, dry NEUROLOGIC EXAMINATION: Patient is awake, alert and oriented x3. ASSESSMENT Chest pain Coronary artery disease s/p prior PCI (per patient 13 years ago after an abnormal stress test) Hypertension Dyslipidemia GERD Ulcerative colitis Former tobacco use Family history of coronary artery disease PLAN Initial troponin negative, Trend troponins Repeat EKG We will start on IV heparin, if repeat troponins are negative, ok to discontinue Obtain 2D echocardiogram and doppler study to assess cardiac structure and function. Increase losartan 100mg daily Decrease metoprolol tartrate 50mg TID Continue aspirin and statin Monitor BP Continue cardiac telemetry NPO after midnight pending the above workup Follow up with Dr. Castellano, her primary cardiology as an outpatient once discharged Thank you kindly for this consultation. Nurse practitioner note has been reviewed by physician. Signing provider agrees with the documented findings, assessment, and plan of care. Past Medical History Past Medical History: GERD/Reflux, Hyperlipidemia, Hypertension Additional Past Medical History / Comment(s): ulcerative colitis History of Any Multi-Drug Resistant Organisms: None Reported Past Surgical History: Cholecystectomy, Heart Catheterization With Stent, Hysterectomy, Tonsillectomy Additional Past Surgical History / Comment(s): LEEROY CATARACTS, fatty cyst removed from back of throat,colonoscopies Past Anesthesia/Blood Transfusion Reactions: No Reported Reaction, Family History of Problems w/ Anesthesia Additional Past Anesthesia/Blood Transfusion Reaction / Comment(s): "daughter takes long time to come out of it". pt has claustrophobia Date of Last Stent Placement:: 2008 Past Psychological History: No Psychological Hx Reported Smoking Status: Former smoker - Past Family History Father Family Medical History: Liver Disease Mother Family Medical History: Congestive Heart Failure (CHF) Medications and Allergies Home Medications Medication Instructions Recorded Confirmed Type Aspirin [Adult Low Dose Aspirin EC] 81 mg PO DAILY 06/12/16 06/18/21 History Atorvastatin [Lipitor] 20 mg PO DAILY 06/12/16 06/18/21 History Metoprolol Tartrate [Lopressor] 100 mg PO BID 06/12/16 06/18/21 History Calcium Carbonate [Calcium] 1,000 mg PO DAILY 08/17/18 06/18/21 History Multivitamins, Thera [Multivitamin 1 tab PO DAILY 08/17/18 06/18/21 History (formulary)] Losartan/Hydrochlorothiazide 1 tab PO DAILY 04/14/21 06/18/21 History [Losartan-Hctz 50-12.5 mg Tab] Omeprazole [PriLOSEC] 20 mg PO AC-BRKFST 04/14/21 06/18/21 History Ranolazine [Ranolazine ER] 500 mg PO Q12HR 04/14/21 06/18/21 History Ascorbic Acid [Vitamin C] 500 mg PO DAILY 06/18/21 06/18/21 History Balsalazide Disodium 2,250 mg PO BID 06/18/21 06/18/21 History Ciclopirox Olamine [Ciclopirox 1 applic TOPICAL BID 06/18/21 06/18/21 History 0.77% Topical Susp.] Allergies Allergy/AdvReac Type Severity Reaction Status Date / Time No Known Allergies Allergy Verified 06/18/21 08:43 Physical Exam Vitals: Vital Signs Temp Pulse Pulse Resp BP Pulse Ox 06/18/21 11:40 66 12 167/86 99 06/18/21 07:17 75 06/18/21 07:06 97.2 F L 72 18 192/92 99 Intake and Output 06/17/21 06/18/21 06/18/21 22:59 06:59 14:59 Other: Weight 75.75 kg Results 06/18/21 08:22 06/18/21 08:22 Cardiac Enzymes 06/18/21 06/18/21 Range/Units 08:22 08:22 AST 29 (14-36) U/L Troponin I <0.012 (0.000-0.034) ng/mL Coagulation 06/18/21 Range/Units 08:22 PT 10.0 (9.0-12.0) sec APTT 24.8 (22.0-30.0) sec CBC 06/18/21 Range/Units 08:22 WBC 5.7 (3.8-10.6) k/uL RBC 4.46 (3.80-5.40) m/uL Hgb 14.4 (11.4-16.0) gm/dL Hct 42.0 (34.0-46.0) % Plt Count 309 (150-450) k/uL Comprehensive Metabolic Panel 06/18/21 Range/Units 08:22 Sodium 140 (137-145) mmol/L Potassium 4.3 (3.5-5.1) mmol/L Chloride 104 (98-107) mmol/L Carbon Dioxide 27 (22-30) mmol/L BUN 12 (7-17) mg/dL Creatinine 0.88 (0.52-1.04) mg/dL Glucose 148 H (74-99) mg/dL Calcium 9.2 (8.4-10.2) mg/dL AST 29 (14-36) U/L ALT 22 (4-34) U/L Alkaline Phosphatase 59 (38-126) U/L Total Protein 7.8 (6.3-8.2) g/dL Albumin 4.4 (3.5-5.0) g/dL Current Medications Generic Name Dose Route Start Last Admin Trade Name Freq PRN Reason Stop Dose Admin Ascorbic Acid 500 mg 06/19/21 09:00 Ascorbic Acid 500 Mg Tab PO DAILY [facility] Aspirin 81 mg 06/19/21 09:00 Aspirin 81 Mg PO DAILY [facility] Atorvastatin Calcium 20 mg 06/19/21 09:00 Atorvastatin 20 Mg Tab PO DAILY [facility] Metoprolol Tartrate 100 mg 06/18/21 21:00 Metoprolol Tartrate 50 Mg Tab PO BID [facility] Multivitamins 1 each 06/19/21 09:00 Multivitamins, Thera 1 Each Tab PO DAILY [facility] Naloxone HCl 0.2 mg 06/18/21 09:32 Naloxone 0.4 Mg/Ml 1 Ml Vial IV Q2M PRN Opioid Reversal Non-Formulary Medication 20 mg 06/19/21 07:30 Omeprazole PO AC-BRKFST [facility] Ranolazine 500 mg 06/18/21 21:00 Ranolazine 500 Mg Tab.Er.12h PO Q12HR ROLY Intake and Output 06/17/21 06/18/21 06/18/21 22:59 06:59 14:59 Other: Weight 75.75 kg Patient Weight 06/19/21 06:59 Weight 75.75 kg 06/18/21 08:22 06/18/21 08:22
[2021-06-18] MEDS ORDERED: HEPARIN SOD,PORK IN 0.45% NACL 25,000 UNIT in 0.45% NACL 1 250ML.BAG IV SCH (13:45)
[2021-06-18 14:46] LABS: INR 0.9 (<1.2); Partial Thromboplastin Time 24.8 sec (22.0-30.0)
[2021-06-18] MEDS: LOSARTAN 50 MG TAB PO SCH (14:58)
[2021-06-18] MEDS: METOPROLOL TARTRATE 50 MG TAB PO SCH ×2 (15:31→21:25)
--- NOTE | 2021-06-18 16:15 | P.HPIM ---
History of Present Illness H&P Date: 06/18/21 Chief Complaint: Chest pain Patient is 70-year-old female she is given a past medical history significant for hypertension, dyslipidemia, GERD, ulcerative colitis, tobacco abuse, coronary artery disease with a previous stent and 13 years ago. Patient is known to cardiology's Josué Castillo. Patient presents to the hospital today with complaints of chest pressure. Patient reports that this pressure began yesterday. She also reports some associated pain to her left jaw as well as radiation of pain going down her right arm has tingling. Patient had elevated blood pressure readings yesterday greater than 180 systolics. Patient reports that normally her blood pressure is well-controlled on her current medications. In the emergency room patient did receive sublingual nitro with some improvement of her symptoms. Review of Systems For complete review of system was performed and pertinent positives and negatives noted in HPI Past Medical History Past Medical History: Coronary Artery Disease (CAD), GERD/Reflux, Hyperlipidemia, Hypertension Additional Past Medical History / Comment(s): Ulcerative colitis, benign colon polyps, gastritis, schatzkis ring. History of Any Multi-Drug Resistant Organisms: None Reported Past Surgical History: Cholecystectomy, Heart Catheterization With Stent, Hysterectomy, Tonsillectomy Additional Past Surgical History / Comment(s): EGDs, colonoscopies, fatty cyst removed from back of throat, bilateral eye cataract removals/lens implants. Past Anesthesia/Blood Transfusion Reactions: No Reported Reaction, Family History of Problems w/ Anesthesia Additional Past Anesthesia/Blood Transfusion Reaction / Comment(s): "daughter takes long time to come out of it". pt has claustrophobia Date of Last Stent Placement:: 2008 Smoking Status: Former smoker - Past Family History Father Family Medical History: Liver Disease Mother Family Medical History: Congestive Heart Failure (CHF) Medications and Allergies Home Medications Medication Instructions Recorded Confirmed Type Aspirin [Adult Low Dose Aspirin EC] 81 mg PO DAILY 06/12/16 06/18/21 History Atorvastatin [Lipitor] 20 mg PO DAILY 06/12/16 06/18/21 History Metoprolol Tartrate [Lopressor] 100 mg PO BID 06/12/16 06/18/21 History Calcium Carbonate [Calcium] 1,000 mg PO DAILY 08/17/18 06/18/21 History Multivitamins, Thera [Multivitamin 1 tab PO DAILY 08/17/18 06/18/21 History (formulary)] Losartan/Hydrochlorothiazide 1 tab PO DAILY 04/14/21 06/18/21 History [Losartan-Hctz 50-12.5 mg Tab] Omeprazole [PriLOSEC] 20 mg PO AC-BRKFST 04/14/21 06/18/21 History Ranolazine [Ranolazine ER] 500 mg PO Q12HR 04/14/21 06/18/21 History Ascorbic Acid [Vitamin C] 500 mg PO DAILY 06/18/21 06/18/21 History Balsalazide Disodium 2,250 mg PO BID 06/18/21 06/18/21 History Ciclopirox Olamine [Ciclopirox 1 applic TOPICAL BID 06/18/21 06/18/21 History 0.77% Topical Susp.] Allergies Allergy/AdvReac Type Severity Reaction Status Date / Time No Known Allergies Allergy Verified 06/18/21 08:43 Physical Exam Osteopathic Statement: *. No significant issues noted on an osteopathic structural exam other than those noted in the History and Physical/Consult. Vitals: Vital Signs Temp Pulse Pulse Pulse Resp BP BP 06/18/21 15:27 98.0 F 73 14 181/77 06/18/21 14:27 71 14 159/74 06/18/21 12:30 69 147/89 06/18/21 11:50 73 134/67 06/18/21 11:44 64 166/79 06/18/21 11:40 66 12 167/86 06/18/21 07:17 75 06/18/21 07:06 97.2 F L 72 18 192/92 Pulse Ox 06/18/21 15:27 98 06/18/21 14:27 100 06/18/21 12:30 06/18/21 11:50 06/18/21 11:44 06/18/21 11:40 99 06/18/21 07:17 06/18/21 07:06 99 Intake and Output 06/18/21 06/18/21 06/18/21 06:59 14:59 22:59 Other: Weight 75.75 kg - Constitutional General appearance: obese - EENT Eyes: PERRLA ENT: normal oropharynx - Neck Neck: normal ROM - Respiratory Respiratory: bilateral: CTA - Cardiovascular Rhythm: regular - Gastrointestinal General gastrointestinal: normal bowel sounds, soft - Neurologic Neurologic: CNII-XII intact - Psychiatric Psychiatric: A&O x's 3, appropriate affect, intact judgment & insight Results CBC & Chem 7: 06/18/21 08:22 06/18/21 08:22 Labs: Abnormal Lab Results - Last 24 Hours (Table) 06/18/21 Range/Units 08:22 Glucose 148 H (74-99) mg/dL Thrombosis Risk Factor Assmnt - Choose All That Apply Any of the Below Risk Factors Present?: Yes Each Factor Represents 1 point: Obesity (BMI >25) Other Risk Factors: Yes Each Risk Factor Represents 2 Points: Age 61-74 years Other congenital or acquired thrombophilia - If yes, enter type in comment: No Thrombosis Risk Factor Assessment Total Risk Factor Score: 3 Thrombosis Risk Factor Assessment Level: Moderate Risk Assessment and Plan (1) Chest pain Current Visit: Yes Status: Acute Code(s): R07.9 - CHEST PAIN, UNSPECIFIED SNOMED Code(s): 47067192 Plan: Chest pain -Rule out ACS. Initial troponins negative. EKG shows no signs of acute ischemia. -Patient will be admitted to observation floor with cardiac workup and cardiology consultation -Repeat echocardiogram is pending -Continue with aspirin, statin, beta marquise, arb Hypertension accelerated -Patient's home dose of metoprolol as 100 mg twice a day. Cardiology has decrease this dose to 50 mg 3 times a day -Patient is on losartan and hasn't been increased to 100 mg daily per cardiology CAD -Patient has a previous history of PCI 13 years ago. -Continue with statin and aspirin therapy. Echocardiogram is pending -Continue with home Ranexa GERD Continue with PPI CODE STATUS: Full Diet: Cardiac DVT GI prophylaxis: Heparin
[2021-06-18] MEDS ORDERED: METOPROLOL TARTRATE 50 MG TAB PO SCH (21:00)
[2021-06-18] MEDS: RANOLAZINE 500 MG TAB.ER.12H PO SCH (21:25)
[2021-06-19] MEDS ORDERED: PANTOPRAZOLE 40 MG TABLET PO SCH (07:30)
[2021-06-19 07:31] VITALS: BP 155/80; PULSE 75; RESP 15; TEMP 97.7
[2021-06-19] MEDS ORDERED: SODIUM CHLORIDE 0.9% 1,000 ML IV SCH (08:15)
[2021-06-19] MEDS: LOSARTAN 50 MG TAB PO SCH (08:29)
[2021-06-19] MEDS: RANOLAZINE 500 MG TAB.ER.12H PO SCH (08:29)
[2021-06-19] MEDS: METOPROLOL TARTRATE 50 MG TAB PO SCH (08:30)
[2021-06-19] MEDS ORDERED: ASCORBIC ACID 500 MG TAB PO SCH (09:00)
[2021-06-19] MEDS ORDERED: amLODIPine 5 MG TAB PO SCH (09:00)
[2021-06-19] MEDS ORDERED: MULTIVITAMINS, THERA 1 EACH TAB PO SCH (09:00)
[2021-06-19] MEDS ORDERED: ASPIRIN 81 MG PO SCH (09:00)
[2021-06-19] MEDS ORDERED: ATORVASTATIN 20 MG TAB PO SCH (09:00)
--- NOTE | 2021-06-19 09:22 | P.PN ---
Subjective This is a pleasant 70-year-old female past medical history significant for hypertension, dyslipidemia, GERD, Ulcerative colitis, former tobacco use quit in the 1980s, coronary artery disease s/p prior PCI 13 years ago (she states due to an abnormal stress test). She follows with Dr. Castellano. We have been asked to see in consultation for Chest pain. Patient presents emergency department with complaints of chest discomfort and hypertension. Patient began began to have chest pressure yesterday, it began in the center of her chest, radiated to her left jaw. It was non-exertional. She had associated right arm tingling. She checked her blood pressure and continued to be in the 180s systolic without improvement. Her chest pressure continued and presented to the emergency department for further evaluation. She denies any associated shortness of breath, diaphoresis, nausea, lightheadedness, dizziness, syncope or near syncope. She was given sublingual nitro with improvement. No specific aggravating factors. She states she has not had a stress test in the past year. She denies any history of lung disease, stroke or diabetes. Family history includes mother had congestive heart failure and brother had an [place]. 06/19/2021 Patient seen and examined at bedside, no distress. Her chest pain has resolved. Denies shortness of breath. She is asymptomatic, no complaints. Her blood pressure has improved, but continues to be elevated. Blood pressure 155/80, heart rate 75, afebrile. Telemetry reviewed patient maintained sinus mechanism with a heart rate of 60s80s. Labs reviewed, troponin has been negative 3. Echocardiogram revealed a normal left ventricular systolic function, no significant wall motion abnormalities, no significant pulmonary hypertension, no pericardial effusion, mild mitral regurgitation PHYSICAL EXAMINATION Vitals reviewed CONSTITUTIONAL: No apparent distress. HEENT: Neck supple No JVD. CHEST EXAMINATION: Lungs are clear to auscultation. No chest wall tenderness is noted on palpation or with deep breathing. HEART EXAMINATION: Regular rate and rhythm. S1, S2 heard. No murmurs, gallops or rub. ABDOMEN: Soft, nontender. Positive bowel sounds. EXTREMITIES: 2+ peripheral pulses, no lower extremity edema and no calf tenderness. SKIN: warm, dry NEUROLOGIC EXAMINATION: Patient is awake, alert and oriented x3. ASSESSMENT Chest pain, acute coronary syndrome has ruled out Coronary artery disease s/p prior PCI (per patient 13 years ago after an abnormal stress test) Hypertension Dyslipidemia GERD Ulcerative colitis Former tobacco use Family history of coronary artery disease PLAN An acute coronary event has been ruled out with no EKG evidence of ischemia and negative cardiac enzymes. Echocardiogram with normal LV systolic function Stop IV Heparin Perform Stress Echo test to assess for stress induced cardiac ischemia. If abnormal will consider coronary angiography. Add amlodipine 5mg daily Continue losartan 100mg daily, metoprolol tartrate 50mg TID (Hold Metoprolol this morning prior to stress test) From a cardiology perspective, if stress echo is negative patient is stable for discharge Follow up with Dr. Castellano, her primary cardiology as an outpatient once d ischarged Nurse practitioner note has been reviewed by physician. Signing provider agrees with the documented findings, assessment, and plan of care. Objective - Vital Signs Vital signs: Vital Signs Temp 97.7 F 06/19/21 07:00 Pulse 75 06/19/21 07:00 Resp 15 06/19/21 07:00 BP 155/80 06/19/21 07:00 Pulse Ox 94 L 06/19/21 07:00 Intake & Output 06/18/21 06/19/21 06/19/21 18:59 06:59 18:59 Intake Total 118 74.386 Balance 118 74.386 Weight 75.75 kg Intake: Intake, IV Titration 74.386 Amount Heparin Sod,Pork in 0.45% 74.386 NaCl 25,000 unit In 0.45 % NaCl 1 250ml.bag @ 12 UNITS/KG/HR 9.09 mls/hr IV .Q24H ROLY Rx#: [id number] Oral 118 Other: # Voids 1 1 - Labs CBC & Chem 7: 06/18/21 08:22 06/18/21 08:22 Labs: Abnormal Lab Results - Last 24 Hours (Table) 06/18/21 06/19/21 Range/Units 20:17 05:53 APTT 67.7 H 37.8 H (22.0-30.0) sec
[2021-06-19 10:14] LABS: Basophils # (A) 0.03 X 10*3/uL (0.00-0.10); Basophils % (A) 0.5 %; Eosinophils # (A) 0.24 X 10*3/uL (0.04-0.35); Eosinophils % (A) 3.6 %; HCT 40.1 % (37.2-46.3); HGB 12.8 g/dL (12.0-15.0); Immature Grans, Automated 0.2 %; Lymphocytes # (A) 2.34 X 10*3/uL (0.90-5.00); Lymphocytes % (A) 35.2 %; MCH 30.8 pg (27.0-32.0); MCHC 31.9 g/dL (32.0-37.0); MCV 96.6 fL (80.0-97.0); Mean Platelet Volume 10.2 fL (9.5-12.2); Monocytes # (A) 0.64 X 10*3/uL (0.20-1.00); Monocytes % (A) 9.6 %; NRBC Per 100 WBC 0 /100 WBCS (0.0-0.0); Neutrophils # (A) 3.38 X 10*3/uL (1.80-7.70); Neutrophils % (A) 50.9 %; Platelet Count 258 X 10*3/uL (140-440); RBC 4.15 X 10*6/uL (4.10-5.20); RDW 11.9 % (11.5-14.5); WBC 6.64 X 10*3/uL (4.50-10.00)
[2021-06-19 11:02] LABS: African American GFR (CKD) 65.6 (60.0-200.0); Anion Gap 13.5 mmol/L (10.00-18.00); BUN/Creat Ratio 11.7 Ratio (12.00-20.00); Blood Urea Nitrogen 11.7 mg/dL (9.0-27.0); Calcium 8.9 mg/dL (8.7-10.3); Carbon Dioxide 20.5 mmol/L (20.0-27.5); Non-African American GFR(CKD) 56.6 (60.0-200.0); Potassium 4.5 mmol/L (3.5-5.5)
--- NOTE | 2021-06-19 11:11 | CA ---
Stress Echo Report Nette Anna Age: 70 Gender: F : 1950 Exam Date: 06/19/2021 10:08 Exam Location: [place] [facility] Ht (in): 64 Wt (lb): 167 Ordering Physician: Jana Sanchez Referring Physician: Abigail,, Fiberglass Boat Builder: Nkechi Givens RDCS Technologist Procedure CPT: Indication: Chest Pain ICD-9 Codes: Rhythm: Patient History: Diabetes mellitus, Hypertension, Family history, Atypical angina Cardiac Medications: Medications in past 24 hours: Contrast: Stress Results Protocol: Humberto Total dose(mL): Exercise Duration (min:sec): 6.[address] Depression (mm): Angina Score: Duran Score: METS: 7.7 Resting HR: 93 Resting BP: 172 / 101 Peak HR: 132 Peak BP: 219 / 101 Max Predicted HR: 149 89 % Max Predicted HR Target HR: 127 Double Product: [id number] Stress Summary: BP Response: Reason for Termination: Reached target heart rate or work-load Cardiac Symptoms: Short of Breath ECG Analysis Resting ECG: Stress ECG: Arrhythmia: Echo Analysis Resting Echo: Peak Echo Analysis: MEASUREMENTS (Male/Female) Normal Values CONCLUSIONS Patient is baseline EKG revealed normal sinus rhythm without significant ST-T changes. She walked on a standard Humberto protocol for 6 minutes 27 seconds and achieved a maximum heart rate of 132 bpm which is more than 85% of predicted maximal. She developed fatigue and shortness of breath but did not have any angina. EKG did not reveal any ST segment changes to indicate ischemia. She had a hypertensive response to exercise with a peak pressure of 219/100. This is a negative stress test by EKG criteria with fair exercise capacity and a hypertensive response. Baseline echo images reveal normal wall motion wall thickening of all segments. At peak exercise there was good augmentation of wall motion and wall thickening of all segments suggesting that there is no evidence of any stress-induced ischemia of the study. #1 normal stress test EKG criteria with no ischemia present exercise capacity. Hypertensive response to exercise #2 normal stress echocardiogram with no evidence of ischemia Dr. Katarzyna Koehler MD (Electronically Signed) Final Date: 19 June 2021 11:10
[2021-06-19 12:16] LABS: INR 0.95 (0.90-1.11); Prothrombin Time 10.8 sec (9.9-11.9)
--- NOTE | 2021-06-19 19:15 | P.DS ---
Providers Date of admission: 06/18/21 09:33 Expected date of discharge: 06/19/21 Attending physician: Sarah Hayes MD Consults: 06/18/21 09:33 Consult Physician Urgent Consulting Provider: [facility] Consult Reason/Comments: acute chest pain, hx ascad Do you want consulting provider notified?: Yes Primary care physician: Gustabo Jimenez Hospital Course: Discharge Diagnosis: Atypical chest pain, acute coronary event ruled out. Hypertensive urgency, Patient was started on amlodipine in addition to current medication regimen with losartan/hydrochlorothiazide and metoprolol History of CAD with previous stents Hyperlipemia GERD Ulcerative colitis Tobacco dependence, recommend smoking cessation Hospital Course: Patient is a very pleasant 70-year-old female with a past medical history of CAD with previous stents, hypertension, hyperlipidemia, GERD, ulcerative colitis, and tobacco dependence. She presented to the emergency department on 06/18/21 with a chief complaint of chest pressure. Upon arrival to facility patient was noted to have elevated blood pressure 192/92. Chest x-ray negative for acute cardiopulmonary process. EKG showing normal sinus rhythm at 60 bpm with no noted T-wave or ST abnormalities. Labs drawn with CBC, coags, CMP, lipase and troponin all unremarkable. Patient was admitted under our services with consultation to cardiology. She underwent monitoring overnight and troponins trended all negative at less than 0.012 3 draws. Patient had full resolution of previously reported chest pressure and denied having any complaints. She was started on amlodipine in addition to current medication regimen with losartan/hydrochlorothiazide and metoprolol. Echocardiogram was completed showing normal LV size and systolic function with mild mitral and tricuspid insufficiency no significant pulmonary hypertension and no pericardial effusion. Patient underwent a stress echo which was normal stress test EKG with no ischemia present with exercise capacity and normal stress echocardiogram with no evidence of ischemia. Cardiology clearing patient for outpatient follow-up. Patient is medically stable at this time. Patient discharged home at this time. Patient is sent home with amlodipine 5 mg daily in addition to blood pressure medication regimen. A total of 37 minutes of time were spent preparing this complex discharge summary. Pt was discharged on 06/19/21 at Patient Condition at Discharge: Stable Plan - Discharge Summary Discharge Rx Participant: No New Discharge Prescriptions: New amLODIPine [Norvasc] 5 mg PO DAILY 30 Days #90 tab Continue Metoprolol Tartrate [Lopressor] 100 mg PO BID Atorvastatin [Lipitor] 20 mg PO DAILY Aspirin [Adult Low Dose Aspirin EC] 81 mg PO DAILY Multivitamins, Thera [Multivitamin (formulary)] 1 tab PO DAILY Calcium Carbonate [Calcium] 1,000 mg PO DAILY Ranolazine [Ranolazine ER] 500 mg PO Q12HR Losartan/Hydrochlorothiazide [Losartan-Hctz 50-12.5 mg Tab] 1 tab PO DAILY Balsalazide Disodium 2,250 mg PO BID Omeprazole [PriLOSEC] 20 mg PO -[facility] Ciclopirox Olamine [Ciclopirox 0.77% Topical Susp.] 1 applic TOPICAL BID Ascorbic Acid [Vitamin C] 500 mg PO DAILY Discharge Medication List Aspirin [Adult Low Dose Aspirin EC] 81 mg PO DAILY 06/12/16 [History] Atorvastatin [Lipitor] 20 mg PO DAILY 06/12/16 [History] Metoprolol Tartrate [Lopressor] 100 mg PO BID 06/12/16 [History] Calcium Carbonate [Calcium] 1,000 mg PO DAILY 08/17/18 [History] Multivitamins, Thera [Multivitamin (formulary)] 1 tab PO DAILY 08/17/18 [History] Losartan/Hydrochlorothiazide [Losartan-Hctz 50-12.5 mg Tab] 1 tab PO DAILY 04/14/21 [History] Omeprazole [PriLOSEC] 20 mg PO [id number] 04/14/21 [History] Ranolazine [Ranolazine ER] 500 mg PO Q12HR 04/14/21 [History] Ascorbic Acid [Vitamin C] 500 mg PO DAILY 06/18/21 [History] Balsalazide Disodium 2,250 mg PO BID 06/18/21 [History] Ciclopirox Olamine [Ciclopirox 0.77% Topical Susp.] 1 applic TOPICAL BID 06/18/21 [History] amLODIPine [Norvasc] 5 mg PO DAILY 30 Days #90 tab 06/19/21 [Rx] Follow up Appointment(s)/Referral(s): Gustabo Jimenez DO [Primary Care Provider] - 1-2 days Sumeet George DO [REFERRING] - 1 Week Patient Instructions/Handouts: Chest Pain (DC), Stress Echocardiogram (DC) Activity/Diet/Wound Care/Special Instructions: Activity: As tolerated. Take breaks as needed. Diet: Heart healthy and carb consistent diet. Avoid salts, or foods with hidden salts such as canned or boxed foods and frozen dinners. Extra salt makes your heart work harder and traps the fluid in your body for longer. Special Instructions: Take all of your medications as directed and remember to keep all of your doctor's appointments and follow-up as needed. I truly hope you enjoy every single moment of your vacation! Thank you for allowing us to participate in your care, it was truly a pleasure having you for our patient!!! Discharge Disposition: HOME SELF-CARE
== END 2021-06-19 13:00 | disposition home or self-care (01) ==
LOC: EC 07:05 → 6NMEDSUR 09:33
PROVIDERS: ADMIT Internal Medicine; ATTEND Internal Medicine
DX: R07.89 Other chest pain (principal); I16.0 Hypertensive urgency; I25.10 Atherosclerotic heart disease of native coronary artery without angina pectoris; I10 Essential (primary) hypertension; I08.1 Rheumatic disorders of both mitral and tricuspid valves; K51.90 Ulcerative colitis, unspecified, without complications; K21.9 Gastro-esophageal reflux disease without esophagitis; E78.5 Hyperlipidemia, unspecified; F40.240 Claustrophobia; I25.2 Old myocardial infarction; E66.9 Obesity, unspecified; Z68.28 Body mass index [BMI] 28.0-28.9, adult; Z79.82 Long term (current) use of aspirin; Z79.899 Other long term (current) drug therapy; Z95.5 Presence of coronary angioplasty implant and graft; Z90.49 Acquired absence of other specified parts of digestive tract; Z90.710 Acquired absence of both cervix and uterus; Z98.42 Cataract extraction status, left eye; Z98.41 Cataract extraction status, right eye; Z96.1 Presence of intraocular lens; Z87.19 Personal history of other diseases of the digestive system; Z98.890 Other specified postprocedural states; Z82.49 Family history of ischemic heart disease and other diseases of the circulatory system; Z83.79 Family history of other diseases of the digestive system; Z84.89 Family history of other specified conditions
CPT/HCPCS: 96366; 96376; 96365; 96375; 99285; 36415; 93005; 93306; 93351; 80053; 80048; 83690; 83735; 84484 ×2; 85025 ×2; 85610 ×2; 85730 ×2; 71046; G0378 ×2; J1644 ×2

== ENCOUNTER → 2024-01-26 | Outpatient (CLI) | payer MEDICARE ==
--- NOTE | 2024-01-26 14:06 | BD ---
EXAMINATION TYPE: Axial Bone Density DATE OF EXAM: 01/26/2024 CLINICAL HISTORY: 73 years old Female. ICD-10 CODE: N95.1 MENOPAUSAL AND FE , Additional History: Height: 63.2 in Weight: 154 lbs FRAX RISK QUESTIONS: Secondary Osteoporosis: 1. Type 1 Diabetes: yes 4. Malnutrition: ulcerative colitis EXAM MEASUREMENTS: Bone mineral densitometry was performed using the [employer] System. Bone mineral density as measured about the Lumbar spine is: ----- L1-L4(G/cm2): 1.271 T Score Values are as follows: ----- L1: 0.8 ----- L2: 1.5 ----- L3: 0.1 ----- L4: 0.6 ----- L1-L4: 0.8 Z Score Values are as follows: ----- L1: 2.3 ----- L2: 3.1 ----- L3: 1.7 ----- L4: 2.2 ----- L1-L4: 2.3 Bone mineral density baseline Bone mineral density about the R hip (g/cm2): 1.014 Bone mineral density about the L hip (g/cm2): 1.027 T Score values are as follows: -----R Neck: -0.4 -----L Neck: -0.2 -----R Total: 0.1 -----L Total: 0.2 Z Score values are as follows: -----R Neck: 1.4 -----L Neck: 1.6 -----R Total: 1.6 -----L Total: 1.7 Bone mineral density baseline FRAX%s: The graph provided illustrates a 8.1% chance for a major osteoporotic fx and a 0.8% chance fo r the hips probability for fx in 10 years time. IMPRESSION: Normal (Values between +1 and -1 indicate normal bone mass). Consider repeating this study in 5 year s or sooner if there is some new clinical indication. NOTE: T-SCORE=SD OF THE YOUNG ADULT MEAN. [facility], , 01/26/2024 2:04 PM
--- NOTE | 2024-01-27 18:37 | MM ---
Reason for Exam: Screening (asymptomatic). Last mammogram was performed 1 year(s) and 1 month(s) ago. Patient History: Menarche at age 12. First Full-Term at age 17. Left ovary removed at age 48. Right ovary removed at age 48. Hysterectomy at age 48. Postmenopausal. Risk Values: Karol 5 year model risk: 1.3%. NCI Lifetime model risk: 3.0%. Prior Study Comparison: 03/11/2017 Bilateral Screening Mammogram, Unknown. 12/23/2021 Bilateral Screening Mammogram, Unknown. 01/05/2023 Bilateral Screening Mammogram, Unknown. Tissue Density: The breasts are heterogeneously dense, which may obscure small masses. Findings: Analyzed By CAD. Benign vascular calcifications. There is no suspicious group of microcalcifications or new suspicious mass in either breast. Overall Assessment: Benign, BI-RAD 2 Management: Screening Mammogram of both breasts in 1 year. . Patient should continue monthly self-breast exams. A clinical breast exam by your physician is recommended on an annual basis. This exam should not preclude additional follow-up of suspicious palpable abnormalities. Note on Karol scores and lifetime risk: 1. A Karol score greater than 3% is considered moderate risk. If this is the case, consider specialist referral to assess eligibility for a risk reducing agent. 2. If overall lifetime risk for the development of breast cancer is 20% or higher, the patient may qualify for future screening with alternating mammogram and breast MRI. [facility], , 01/27/2024 6:34 PM. Electronically signed and approved by: Sandy Palacios M.D. Radiologist
== END | disposition home or self-care (01) ==
LOC: RADMAMWWP 07:05
PROVIDERS: ATTEND Family Medicine
DX: Z12.31 Encounter for screening mammogram for malignant neoplasm of breast (principal); N95.1 Menopausal and female climacteric states; R29.890 Loss of height; Z90.722 Acquired absence of ovaries, bilateral; E46 Unspecified protein-calorie malnutrition
CPT/HCPCS: 77067; 77080